=== PATIENT | male | born 1940 ===

== ENCOUNTER 2019-01-29 11:52 | Outpatient (CLI) | payer OTHER ==
[~2019-01-29] VITALS: Ht 152.4 cm; Wt 97.1 kg
== END 2019-01-29 12:10 | disposition home or self-care (01) ==
LOC: OFIC 805 11:52
DX: H90.3 Sensorineural hearing loss, bilateral (principal); H93.13 Tinnitus, bilateral

== ENCOUNTER 2019-03-19 12:18 | Outpatient (CLI) | payer OTHER ==
[~2019-03-19] VITALS: Ht 152.4 cm; Wt 99.8 kg
== END 2019-03-19 12:35 | disposition home or self-care (01) ==
LOC: OFIC 805 12:18
DX: H90.3 Sensorineural hearing loss, bilateral (principal); H93.13 Tinnitus, bilateral